=== PATIENT | female | born 2000 | race Caucasian/White ===

== ENCOUNTER 2021-02-01 22:12 | Emergency (ER) | payer OTHER ==
[~2021-02-01] VITALS: Ht 180.3 cm; Wt 71.2 kg
[2021-02-01 22:14] VITALS: BP 131/89
== END 2021-02-01 23:21 | disposition home or self-care (01) ==
LOC: ED 23:16
DX: S00.83XA Contusion of other part of head, initial encounter (principal); V43.12XA Car passenger injured in collision with other type car in nontraffic accident, initial encounter; Y93.89 Activity, other specified; Y92.410 Unspecified street and highway as the place of occurrence of the external cause; Y99.8 Other external cause status
CPT/HCPCS: 99283